=== PATIENT | female | born 1970 | race Caucasian/White ===

== ENCOUNTER 2019-08-06 17:44 | Emergency (ER) | payer MEDICAID ==
[~2019-08-06] VITALS: Ht 162.6 cm; Wt 105.2 kg
[2019-08-06 17:49] VITALS: BP 134/67
--- NOTE | 2019-08-06 17:52 | NUR ---
PT AMBULATED TO LOBBY WITH STEADY GAIT
--- NOTE | 2019-08-06 18:24 | NUR ---
Patient ambulated to bed 11. RN evaluating patient at bedside.
--- NOTE | 2019-08-06 18:39 | NUR ---
PT PRESENTS TO ED FOR EVALUATION OF ABDOMINAL PAIN WITH RECTAL BLEEDING. AAO X4, GCS 15, AMBULATORY WITH STEADY GAIT. RESPIRATIONS EVEN AND UNLABORED, BL LUNG CLEAR. SKIN ARM/PINK/DRY, +PMSC. ABDOMEN ROUND/SOFT, NON DISTENDED, ACTIVE BOWEL SOUND X4. VS WNL. WILL CONTINUE TO MONITOR
--- NOTE | 2019-08-06 19:13 | NUR ---
REPORT FROM GOKUL RN
[2019-08-06 19:19] LABS: BASOPHILS # (AUTO) 0.1 K/uL (0.00-0.22); BASOPHILS % (AUTO) 0.6 % (0.0-2.0); EOSINOPHILS # (AUTO) 0.4 K/uL (0-0.4); EOSINOPHILS % (AUTO) 3.9 % (0.0-4.0); HEMATOCRIT 33.5 % (36-48); HEMOGLOBIN 10.8 g/dL (12.0-16.0); LYMPHOCYTES # (AUTO) 2.3 K/uL (2.5-16.5); LYMPHOCYTES % (AUTO) 26.1 % (20.5-51.1); MEAN CORPUSCULAR HEMOGLOBIN 26 pg (27-31); MEAN CORPUSCULAR HGB CONC 32 g/dL (33-37); MEAN CORPUSCULAR VOLUME 80.7 fL (80-94); MONOCYTES # (AUTO) 0.6 K/uL (0.8-1.0); MONOCYTES % (AUTO) 7.1 % (1.7-9.3); NEUTROPHILS # (AUTO) 5.6 K/uL (1.8-7.7); NEUTROPHILS % (AUTO) 62.3 % (42.2-75.2); PLATELET COUNT (AUTO) 192 K/uL (140-450); RED BLOOD CELL COUNT(AUTO) 4.15 MIL/uL (4.20-5.40); RED CELL DISTRIBUTION WIDTH 15.6 % (11.6-13.7)
[2019-08-06] MEDS ORDERED: ONDANSETRON 4 MG/2 ML VIAL IVP ONE (19:30)
[2019-08-06] MEDS ORDERED: MORPHINE SULFATE 4 MG/ML SYR IVP ONE ×2 (19:30→22:20)
[2019-08-06 19:58] LABS: ALBUMIN 3.3 g/dL (3.4-5.0); ANION GAP 12.4 (8-16); CARBON DIOXIDE 25.6 mmol/L (21-32); CREATININE 0.6 mg/dL (0.6-1.3); TOTAL BILIRUBIN 0.1 mg/dL (0.0-1.0)
--- NOTE | 2019-08-06 20:27 | NUR ---
PT TAKEN TO CT
[2019-08-06 20:36] LABS: AMYLASE 59 U/L (25-115); LIPASE 223 U/L (73-393)
--- NOTE | 2019-08-06 20:44 | NUR ---
PT RETURNED FROM CT, PT REPORTS PAIN AND NAUSEA AT A TOLERABLE 2/10
--- NOTE | 2019-08-06 21:51 | NUR ---
Ultrasound at bedside.
--- NOTE | 2019-08-06 22:03 | NUR ---
PT REPORTS PAIN RETURNED AND IS AT 01/01, DR MONDRAGON NOTIFIED
--- NOTE | 2019-08-06 22:41 | NUR ---
CALLED LAB FOR RESULTS OF UA, THEY STATE THAT THEY DO NOT HAVE THE URINE SAMPLE
--- NOTE | 2019-08-06 22:51 | NUR ---
NEW URINE SAMPLE FROM PT COLLECTED, HANDED SAMPLE TO MICHOACANO WATER RESOURCE ENGINEER
[2019-08-06 23:55] LABS: APPEARANCE,URINE CLEAR (CLEAR); BILIRUBIN,URINE NEGATIVE (NEGATIVE); BLOOD, URINE NEGATIVE (NEGATIVE); COLOR,URINE YELLOW (YELLOW); LEUKOCYTE ESTERASE ,URINE NEGATIVE (NEGATIVE); NITRITE, URINE NEGATIVE (NEGATIVE); PH,URINE 5.5 (5.0-9.0); UGLUCOSE NEGATIVE (NEGATIVE)
--- NOTE | 2019-08-07 00:43 | NUR ---
Patient discharged with v/s stable. Written and verbal after care instructions given and explained. Patient alert, oriented and verbalized understanding of instructions. Ambulatory with steady gait. All questions addressed prior to discharge. ID band removed. Patient advised to follow up with PMD. Rx of ZOFRAN ODT given. Patient educated on indication of medication including possible reaction and side effects. Opportunity to ask questions provided and answered.
[2019-08-07 00:44] VITALS: BP 113/59
== END 2019-08-07 00:43 | disposition home or self-care (01) ==
LOC: MED 17:44
DX: R10.9 Unspecified abdominal pain (principal); R11.2 Nausea with vomiting, unspecified; R19.7 Diarrhea, unspecified; Z88.0 Allergy status to penicillin; Z88.6 Allergy status to analgesic agent; Z98.890 Other specified postprocedural states
CPT/HCPCS: 36415; 74177; 76705; 80053; 81003; 82150; 83690; 84703; 85025; 85610; 86886; 86900; 86901; 96374; 96375; 96376; 99285; J2270; J2405; Q0092; Q9967

== ENCOUNTER 2019-10-18 12:10 | Emergency (ER) | payer MEDICAID ==
[~2019-10-18] VITALS: Ht 165.1 cm; Wt 101.6 kg
[2019-10-18 12:14] VITALS: BP 122/76
--- NOTE | 2019-10-18 12:18 | NUR ---
AMBULATED TO BED 12
--- NOTE | 2019-10-18 12:22 | NUR ---
49 Y/O FEMALE FROM HOME C/O RUQ PAIN X 3 DAYS. PT STATES BLOOD IN STOOL YESTERDAY. EPISODE OF DIARRHEA. DENIES N/V. STATES DIZZINESS WITH SLIGHT BLURRED VISION. ABD SOFT AND ROUND. BOWEL SOUNDS PRESENT X 4 QUAD. MEDHX: COLON CANCER ALLERGIES: PENICILLIN, IBUPROFEN
[2019-10-18] MEDS ORDERED: MORPHINE SULFATE 4 MG/ML SYR IVP ONE (12:35)
[2019-10-18] MEDS ORDERED: ONDANSETRON 4 MG/2 ML VIAL IVP ONE (12:35)
--- NOTE | 2019-10-18 12:45 | NUR ---
20G IV PLACED TO RT AC, LABS DRAWN AT THIS TIME
[2019-10-18 12:51] LABS: APPEARANCE,URINE CLEAR (CLEAR); BILIRUBIN,URINE NEGATIVE (NEGATIVE); BLOOD, URINE NEGATIVE (NEGATIVE); COLOR,URINE YELLOW (YELLOW); LEUKOCYTE ESTERASE ,URINE TRACE (NEGATIVE); NITRITE, URINE NEGATIVE (NEGATIVE); UGLUCOSE NEGATIVE (NEGATIVE)
[2019-10-18 12:55] LABS: BASOPHILS % (AUTO) 0.4 % (0.0-2.0); EOSINOPHILS # (AUTO) 0.2 K/uL (0-0.4); EOSINOPHILS % (AUTO) 2.3 % (0.0-4.0); HEMATOCRIT 36.3 % (36-48); HEMOGLOBIN 11.8 g/dL (12.0-16.0); LYMPHOCYTES # (AUTO) 1.8 K/uL (2.5-16.5); LYMPHOCYTES % (AUTO) 23.5 % (20.5-51.1); MEAN CORPUSCULAR HEMOGLOBIN 27 pg (27-31); MEAN CORPUSCULAR HGB CONC 33 g/dL (33-37); MEAN CORPUSCULAR VOLUME 81.6 fL (80-94); MONOCYTES # (AUTO) 0.5 K/uL (0.8-1.0); MONOCYTES % (AUTO) 6.1 % (1.7-9.3); NEUTROPHILS # (AUTO) 5.3 K/uL (1.8-7.7); NEUTROPHILS % (AUTO) 67.7 % (42.2-75.2); PLATELET COUNT (AUTO) 219 K/uL (140-450); RED BLOOD CELL COUNT(AUTO) 4.44 MIL/uL (4.20-5.40); WHITE BLOOD COUNT (AUTO) 7.9 K/uL (4.8-10.8)
--- NOTE | 2019-10-18 13:14 | NUR ---
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
--- NOTE | 2019-10-18 13:19 | NUR ---
Patient returned from CT scan via gurney and placed back in bed 12.
--- NOTE | 2019-10-18 13:19 | NUR ---
PT RETURNING FROM CT VIA [facility].
[2019-10-18 13:20] LABS: RBC,URINE 0-5 /HPF (0-5); WBC,URINE 0-5 /HPF (0-5)
[2019-10-18 13:29] LABS: ALBUMIN 3.6 g/dL (3.4-5.0); ANION GAP 11.9 (8-16); CARBON DIOXIDE 28.9 mmol/L (21-32); CREATININE 0.8 mg/dL (0.6-1.3); POTASSIUM 3.8 mmol/L (3.5-5.1); TOTAL BILIRUBIN 0.3 mg/dL (0.0-1.0)
[2019-10-18 14:33] VITALS: BP 117/42
--- NOTE | 2019-10-18 14:33 | NUR ---
Patient discharged with v/s stable. Written and verbal after care instructions given and explained. Patient alert, oriented and verbalized understanding of instructions. Ambulatory with steady gait. All questions addressed prior to discharge. ID band removed. Patient advised to follow up with PMD. Rx of NORCO AND COLACE given. Patient educated on indication of medication including possible reaction and side effects. Opportunity to ask questions provided and answered.
== END 2019-10-18 14:33 | disposition home or self-care (01) ==
LOC: MED 12:10
DX: R10.11 Right upper quadrant pain (principal); Z88.6 Allergy status to analgesic agent; Z88.0 Allergy status to penicillin
CPT/HCPCS: 36415; 74177; 80053; 81001; 81025; 82150; 83690; 84703; 85025; 96374; 96375; 99285; J2270; J2405; Q9967